=== PATIENT | female | born 1990 | race Caucasian/White ===

== ENCOUNTER → 2016-10-12 | Outpatient (CLI) | payer MEDICAID ==
[~2016-10-12] MED LIST: ADALAT CC30 MG PO; CETIRIZINE; FLOVENT 220MCG7.9 GM IH; LORTAB ELIX0.5 MG/ML PO; NAPROSYN 2250 MG/TAB PO; NEXPLANON68 MG ID; NO HOME MEDICATIONS; NORCO 325 MG-51 TAB PO; PERCOCET 325 MG1 TA2 PO; PHENTERMINE15 MG PO; PRENATAL1 TA1 PO; PRIL40 PO; PRILOSEC 20MG20 MG PO; PRILOTC PO; PROAIR HFA0.09 MG/AC IH; PROCARDIA XL 3030 MG PO; PROVENTIL0.09 MG/A1 IH; SENOKOT S 50 MG1 TAB PO; SINGULAIR 110 MG/TAB PO; STEROID INHALER IH; VITAMIN D1000 IU PO; VITAMIN E 400 U4001 PO; ZYRTEC 10MG10 MG PO
== END ==
LOC: COL.RAD 11:59
DX: M25.561 Pain in right knee (principal)

== ENCOUNTER 2017-01-25 09:55 | Day surgery (SDC) | payer MEDICAID ==
[~2017-01-25] VITALS: Ht 167.6 cm; Wt 110.7 kg
[2017-01-25 10:43] VITALS: BP 137/87; PULSE 69; TEMP 98.3
[2017-01-25 11:54] VITALS: BP 140/70; PULSE 75
[2017-01-25 12:10] VITALS: BP 135/67; PULSE 70
[2017-01-25 12:25] VITALS: BP 124/81; PULSE 64
== END 2017-01-25 12:40 | disposition home or self-care (01) ==
LOC: SDCO 09:55
DX: R13.12 Dysphagia, oropharyngeal phase (principal); K22.2 Esophageal obstruction; K21.0 Gastro-esophageal reflux disease with esophagitis; J45.909 Unspecified asthma, uncomplicated; F17.200 Nicotine dependence, unspecified, uncomplicated; Z79.899 Other long term (current) drug therapy
CPT/HCPCS: C1726; J2250; J3010; J7030

== ENCOUNTER 2017-07-15 18:41 | Emergency (ER) | payer MEDICAID ==
[~2017-07-15] VITALS: Ht 167.6 cm; Wt 113.6 kg
[2017-07-15 18:41] VITALS: BP 142/68; TEMP 98.4
[2017-07-15 19:19] LABS: COLLECTION METHOD CLEAN CATCH
[2017-07-15 19:25] LABS: MUCOUS Present /lpf; PH 5 (5-8); URINE APPEARANCE Hazy; URINE BACTERIA Rare /hpf; URINE BILIRUBIN Negative (NEGATIVE); URINE BLOOD Negative (NEGATIVE); URINE COLOR Yellow; URINE GLUCOSE Negative (NEGATIVE); URINE KETONE Negative (NEGATIVE); URINE LEUKOCYTE ESTERASE Negative (NEGATIVE); URINE PROTEIN(semi-quant) Negative (NEGATIVE); URINE UROBILINOGEN Negative (NEGATIVE)
[2017-07-15] MEDS ORDERED: PRENATABS FA1 TAB PO (19:34)
[2017-07-15] MEDS ORDERED: ALDOMET500 MG PO (19:34)
[2017-07-15] MEDS ORDERED: FOLIC ACID 11 MG/TA1 PO (19:34)
[2017-07-15] MEDS ORDERED: MACROBID 1100 MG/CAP PO (20:10)
[2017-07-15 20:16] VITALS: PULSE 79
== END 2017-07-15 20:17 | disposition home or self-care (01) ==
LOC: COL.ER 18:41
PROVIDERS: Emergency Medicine
DX: S30.811A Abrasion of abdominal wall, initial encounter (principal); S80.212A Abrasion, left knee, initial encounter; S50.311A Abrasion of right elbow, initial encounter; E66.9 Obesity, unspecified; I10 Essential (primary) hypertension; W10.9XXA Fall (on) (from) unspecified stairs and steps, initial encounter

== ENCOUNTER 2018-03-04 05:23 | Inpatient (IN) | payer MEDICAID ==
[2018-03-04] VITALS (20 sets, daily range): BP systolic 82–129; BP diastolic 48–91; PULSE 45–76; TEMP 97.8
[~2018-03-04] VITALS: Ht 165.2 cm; Wt 122.7 kg
[~2018-03-04 05:23] MED LIST changes: +ALDOMET500 MG PO; +FOLIC ACID 11 MG/TA1 PO; +MACROBID 1100 MG/CAP PO; +PRENATABS FA1 TAB PO
[2018-03-04 06:49] LABS: BASO % 0.4 % (0.0-2.0); EOS # 0.5 (0.0-0.7); EOS % 5.5 % (0-4.0); GRAN # 5.3 (1.4-6.5); HEMATOCRIT 37.4 % (37.0-47.0); HEMOGLOBIN 13.3 g/dl (12.5-16.0); LYMPH # 1.7 (1.2-3.4); MEAN CELL VOLUME 87 fl (80.0-100.0); MEAN CORPUSCULAR HEMOGLOBIN 31 pg (27.0-31.0); MEAN CORPUSCULAR HGB CONC 36 g/dl (33.0-37.0); MEAN PLATELET VOLUME 10.6 fl (7.4-10.4); MONO # 0.8 (0.1-0.6); MONO % 9.4 % (1.7-9.3); PLATELET COUNT 228 K/mm3 (130-400); RED BLOOD COUNT 4.28 M/mm3 (4.10-5.30); REDCELL DISTRIBUTION WIDTH-CV 13.3 % (11.5-14.5)
[2018-03-05 01:15] VITALS: BP 118/51; PULSE 66; TEMP 97.9
[2018-03-05 05:26] VITALS: BP 120/49; PULSE 63; TEMP 98.7
[2018-03-05 07:51] VITALS: BP 135/64; PULSE 66; TEMP 97.6
[2018-03-05] MEDS ORDERED: IBU600 MG PO (08:15)
[2018-03-05] MEDS ORDERED: PERCOCET 325 MG1 TA2 PO (08:15)
[2018-03-05 16:30] VITALS: BP 121/53; PULSE 68; TEMP 97.9
[2018-03-05 19:12] VITALS: BP 149/77; PULSE 61; TEMP 98.3
[2018-03-06 08:40] VITALS: BP 123/63; PULSE 62; TEMP 98.5
== END 2018-03-06 11:28 | disposition home or self-care (01) | DRG 766 ==
LOC: OB 05:23 → LDR 07:01 → OB 03-06 11:28
PROVIDERS: Obstetrics & Gynecology
PROC: 10D00Z1 Extraction of Products of Conception, Low, Open Approach (ICD-10-PCS; principal; 2018-03-04)
DX: O34.211 Maternal care for low transverse scar from previous cesarean delivery (principal); O13.4 Gestational [pregnancy-induced] hypertension without significant proteinuria, complicating childbirth; O99.214 Obesity complicating childbirth; O99.02 Anemia complicating childbirth; Z3A.39 39 weeks gestation of pregnancy; Z37.0 Single live birth
CPT/HCPCS: J0690; J1885; J2250; J2270; J2370; J2405; J2590; J7120

== ENCOUNTER 2018-06-09 19:42 | Emergency (ER) | payer MEDICAID ==
[~2018-06-09] VITALS: Ht 167.6 cm; Wt 118.2 kg
[~2018-06-09 19:42] MED LIST changes: +IBU600 MG PO
[2018-06-09 19:47] VITALS: TEMP 99.1
[2018-06-09 20:31] LABS: BASO # 0.1 (0.0-0.2); BASO % 0.7 % (0.0-2.0); EOS # 0.6 (0.0-0.7); EOS % 6.6 % (0-4.0); GRAN # 5.5 (1.4-6.5); GRAN % 57.2 % (42.2-75.2); HEMATOCRIT 42.6 % (37.0-47.0); HEMOGLOBIN 14.9 g/dl (12.5-16.0); LYMPH # 2.6 (1.2-3.4); MEAN CELL VOLUME 86 fl (80.0-100.0); MEAN CORPUSCULAR HEMOGLOBIN 30 pg (27.0-31.0); MEAN CORPUSCULAR HGB CONC 35 g/dl (33.0-37.0); MEAN PLATELET VOLUME 9.5 fl (7.4-10.4); MONO # 0.8 (0.1-0.6); MONO % 8.1 % (1.7-9.3); PLATELET COUNT 277 K/mm3 (130-400); RED BLOOD COUNT 4.96 M/mm3 (4.10-5.30); REDCELL DISTRIBUTION WIDTH-CV 13.1 % (11.5-14.5)
[2018-06-09 20:46] LABS: COLLECTION METHOD CLEAN CATCH
[2018-06-09 20:47] LABS: ALBUMIN 4.2 gm/dL (3.5-5.0); CALCIUM 9.2 mg/dL (8.4-10.2); CREATININE, serum 0.7 mg/dL (0.52-1.25); POTASSIUM 3.6 mmol/L (3.4-5.0); TOTAL PROTEIN 7.4 gm/dL (6.4-8.2)
[2018-06-09 20:51] LABS: MUCOUS Present /lpf; PH 6 (5-8); URINE APPEARANCE Clear; URINE BACTERIA None Seen /hpf; URINE BILIRUBIN Negative (NEGATIVE); URINE BLOOD Negative (NEGATIVE); URINE COLOR Yellow; URINE GLUCOSE Negative (NEGATIVE); URINE KETONE Negative (NEGATIVE); URINE LEUKOCYTE ESTERASE Negative (NEGATIVE); URINE NITRATE Negative (NEGATIVE); URINE PROTEIN(semi-quant) Negative (NEGATIVE); URINE RBC 0-2 /hpf; URINE UROBILINOGEN Negative (NEGATIVE)
[2018-06-09] MEDS ORDERED: FLEXERIL 1010 MG/TAB PO (21:36)
[2018-06-09 21:49] VITALS: BP 138/66; PULSE 71
[2018-06-09] MEDS ORDERED: PROCARDIA XL 3030 MG PO (21:53)
== END 2018-06-09 21:55 | disposition home or self-care (01) ==
LOC: COL.ER 19:42
PROVIDERS: Emergency Medicine
DX: R10.30 Lower abdominal pain, unspecified (principal); I10 Essential (primary) hypertension; F17.210 Nicotine dependence, cigarettes, uncomplicated; E66.9 Obesity, unspecified; Z90.49 Acquired absence of other specified parts of digestive tract; Z98.890 Other specified postprocedural states
CPT/HCPCS: J1885

== ENCOUNTER → 2018-06-12 | Outpatient (CLI) | payer MEDICAID ==
[~2018-06-12] MED LIST changes: +FLEXERIL 1010 MG/TAB PO
== END ==
LOC: COL.RAD 09:11
DX: R10.32 Left lower quadrant pain (principal); Z90.49 Acquired absence of other specified parts of digestive tract

== ENCOUNTER → 2018-08-05 | Outpatient (CLI) | payer MEDICAID | LOC: COL.CARD 09:21 | DX: R03.0 Elevated blood-pressure reading, without diagnosis of hypertension (principal) ==

== ENCOUNTER 2019-01-13 19:40 | Emergency (ER) | payer MEDICAID ==
[~2019-01-13] VITALS: Ht 167.6 cm; Wt 122.7 kg
[2019-01-13 19:52] VITALS: TEMP 98.2
[2019-01-13 23:59] LABS: COLLECTION METHOD CLEAN CATCH
[2019-01-14 00:12] LABS: MUCOUS Present /lpf; PH 5 (5-8); URINE APPEARANCE Cloudy; URINE BACTERIA None Seen /hpf; URINE BILIRUBIN Negative (NEGATIVE); URINE BLOOD 3+ (NEGATIVE); URINE CALCIUM OXALATE CRYSTAL Present /hpf; URINE COLOR Yellow; URINE GLUCOSE Negative (NEGATIVE); URINE KETONE Negative (NEGATIVE); URINE LEUKOCYTE ESTERASE Negative (NEGATIVE); URINE NITRATE Negative (NEGATIVE); URINE PROTEIN(semi-quant) 2+ (NEGATIVE); URINE RBC >50 /hpf; URINE UROBILINOGEN Negative (NEGATIVE)
[2019-01-14 01:50] VITALS: BP 161/73; PULSE 58
== END 2019-01-14 01:50 | disposition home or self-care (01) ==
LOC: COL.ER 19:40
PROVIDERS: Physician Assistant
DX: R10.84 Generalized abdominal pain (principal); I10 Essential (primary) hypertension; J45.909 Unspecified asthma, uncomplicated; K21.9 Gastro-esophageal reflux disease without esophagitis; F17.210 Nicotine dependence, cigarettes, uncomplicated; Z90.49 Acquired absence of other specified parts of digestive tract; Z88.6 Allergy status to analgesic agent; Z98.890 Other specified postprocedural states

== ENCOUNTER → 2021-01-11 | Outpatient (CLI) | payer MEDICAID | LOC: COL.RAD 14:00 | DX: Z09 Encounter for follow-up examination after completed treatment for conditions other than malignant neoplasm (principal); Z90.710 Acquired absence of both cervix and uterus | CPT/HCPCS: Q9967 ==

== ENCOUNTER 2021-10-28 07:52 | Emergency (ER) | payer MEDICAID ==
[~2021-10-28] VITALS: Ht 167.6 cm; Wt 120.9 kg
[2021-10-28 08:01] VITALS: TEMP 98.6
[2021-10-28] MEDS ORDERED: BACTRIM DS 8001 TAB PO (09:23)
[2021-10-28] MEDS ORDERED: NORCO 325 MG-51 TAB PO (09:23)
[2021-10-28 09:42] VITALS: BP 162/95; PULSE 100
== END 2021-10-28 09:33 | disposition home or self-care (01) ==
LOC: COL.ER 07:52
DX: L03.314 Cellulitis of groin (principal); I10 Essential (primary) hypertension; J45.909 Unspecified asthma, uncomplicated; F17.210 Nicotine dependence, cigarettes, uncomplicated; Z91.040 Latex allergy status; Z79.899 Other long term (current) drug therapy
CPT/HCPCS: J2270; J2550

== ENCOUNTER 2021-10-29 15:59 | Inpatient (IN) | payer MEDICAID ==
[~2021-10-29] VITALS: Ht 167.6 cm; Wt 120.5 kg
[~2021-10-29 15:59] MED LIST changes: +BACTRIM DS 8001 TAB PO
[2021-10-29 16:56] LABS: BASO # 0.1 K/mm3 (0.0-0.2); BASO % 0.5 % (0.0-2.0); EOS # 0.6 K/mm3 (0.0-0.7); EOS % 3.6 % (0.0-4.0); GRAN # 11.9 K/mm3 (1.4-6.5); GRAN % 76.7 % (42.2-75.2); HEMATOCRIT 42.6 % (37.0-47.0); HEMOGLOBIN 14.7 g/dl (12.5-16.0); LYMPH # 1.9 K/mm3 (1.2-3.4); LYMPH % 12.2 % (20.0-51.0); MEAN CELL VOLUME 88 fl (80.0-100.0); MEAN CORPUSCULAR HEMOGLOBIN 30 pg (27-31); MEAN CORPUSCULAR HGB CONC 35 g/dl (33.0-37.0); MEAN PLATELET VOLUME 9.8 fl (7.4-10.4); MONO % 6.5 % (1.7-9.3); PLATELET COUNT 273 K/mm3 (130-400); RED BLOOD COUNT 4.86 M/mm3 (4.10-5.30); REDCELL DISTRIBUTION WIDTH-CV 12.7 % (11.5-14.5)
[2021-10-29 17:06] LABS: ALBUMIN 3.8 gm/dL (3.5-5.0); BILIRUBIN,TOTAL 1.4 mg/dL (0.2-1.2); CALCIUM 8.9 mg/dL (8.4-10.2); CREATININE, serum 0.96 mg/dL (0.57-1.11); POTASSIUM 3.4 mmol/L (3.5-4.5); TOTAL PROTEIN 7.1 gm/dL (6.2-8.1)
[2021-10-29 17:15] LABS: C-REACTIVE PROTEIN 11.12 mg/dL (0.00-0.50)
--- NOTE | 2021-10-29 20:00 | NUR ---
Patient is resting in bed, alert and oriented x 4 VSS, Continues with pain in the left lower abd. Specially with movement. Antibiotics and NS running. Assessment completed, no other needs at this time. Call light within reach.
[2021-10-29 20:01] VITALS: BP 140/68; PULSE 98; TEMP 98.5
--- NOTE | 2021-10-29 23:47 | NUR ---
Vancomycin Initial Dosing Pharmacy Note Ordering provider: Jose Francisco Mckeon MD Indication/duration: Cellulitis x 5 days Relevant comorbidities: HTN LABS: WBC = 15.5, SCr = 0.96 Recommendation: Will draw troughs and follow levels. Loading dose: 1.5 grams Maintenance dose: 750 mg every 8 hours Trough goal: 10-15 ug/mL
[2021-10-29 23:54] LABS: COLLECTION METHOD CLEAN CATCH
[2021-10-29 23:59] LABS: PH 5 (5-8); URINE APPEARANCE Clear (CLEAR/HAZY); URINE BACTERIA None Seen /hpf (NONE SEEN); URINE BILIRUBIN Negative (NEGATIVE); URINE BLOOD Negative (NEGATIVE); URINE COLOR Yellow (YELLOW); URINE GLUCOSE Negative (NEGATIVE); URINE KETONE Negative (NEGATIVE); URINE LEUKOCYTE ESTERASE Negative (NEGATIVE); URINE NITRATE Negative (NEGATIVE); URINE PROTEIN(semi-quant) Negative (NEGATIVE); URINE RBC 0-2 /hpf (0-2); URINE UROBILINOGEN Negative (NEGATIVE); URINE WBC 0-2 /hpf (0-2)
[2021-10-30] VITALS (16 sets, daily range): BP systolic 123–153; BP diastolic 50–86; PULSE 65–92; TEMP 98–101.1
--- NOTE | 2021-10-30 06:24 | NUR ---
Patient was not able to sleep along the night. Had some fever and headache. Receiving antibiotics. Report will be given to day RN.
[2021-10-30 06:56] LABS: BASO # 0.1 K/mm3 (0.0-0.2); BASO % 0.5 % (0.0-2.0); EOS # 0.6 K/mm3 (0.0-0.7); EOS % 5.4 % (0.0-4.0); GRAN # 7.2 K/mm3 (1.4-6.5); GRAN % 65.4 % (42.2-75.2); HEMATOCRIT 37.7 % (37.0-47.0); HEMOGLOBIN 12.9 g/dl (12.5-16.0); LYMPH # 2.2 K/mm3 (1.2-3.4); LYMPH % 19.9 % (20.0-51.0); MEAN CELL VOLUME 91 fl (80.0-100.0); MEAN CORPUSCULAR HEMOGLOBIN 31 pg (27-31); MEAN CORPUSCULAR HGB CONC 34 g/dl (33.0-37.0); MEAN PLATELET VOLUME 10.3 fl (7.4-10.4); MONO # 0.9 K/mm3 (0.1-0.6); MONO % 8.4 % (1.7-9.3); PLATELET COUNT 235 K/mm3 (130-400); RED BLOOD COUNT 4.16 M/mm3 (4.10-5.30); REDCELL DISTRIBUTION WIDTH-CV 12.8 % (11.5-14.5)
[2021-10-30 07:26] LABS: CALCIUM 8.4 mg/dL (8.4-10.2); CREATININE, serum 0.74 mg/dL (0.57-1.11); MAGNESIUM 1.9 mg/dL (1.6-2.6); PHOSPHOROUS 2.7 mg/dL (2.3-4.7); POTASSIUM 4.1 mmol/L (3.5-4.5)
--- NOTE | 2021-10-30 10:04 | NUR ---
PT LAYING IN BED. STATES THAT SHE JUST GOT UP TO THE BATHROOM AND IS NOW HAVING A LOT OF PAIN IN LOWER ABD AREA. AREA IS RED AND WARM. NO DRAINAGE NOTED. PT IS IN OWN CLOTHES AND WOULD LIKE TO CHANGE INTO A GOWN FOR MORE COMFORT. ASSISTED PAIN INTO GOWN. PT RATES PAIN A 7 OUR OF 10 AT THIS TIME. NO OTHER NEEDS ARE VOICED AT THIS TIME. CALL LIGHT IS WITHIN REACH.
--- NOTE | 2021-10-30 12:18 | NUR ---
AT BEDSIDE. STATES THAT HE WOULD LIKE TO TAKE PT TO OR TO OPEN UP WOUND AND CLEAN IT OUT. PT VERBALIZES UNDERSTANDING. PT DID HAVE BREAKFAST TO EAT. STATES THAT PT NEEDS TO HOLD LUNCH AND FOODS BUT CAN HAVE CLEAR LIQUIDS. PT STATES NO OTHER NEEDS AT THIS TIME. CALL LIGHT IS WITHIN REACH.
--- NOTE | 2021-10-30 15:10 | NUR ---
social worker masters met with patient to discuss discharge plan. Patient reports that she lives at home with her two children in [place]. Her mother Martha ([phone]) is caring for the two children while the patient is in the hospital. Patient is independent with her activities of daily living and does not utilize any DME to assist with mobility. Patient has no oxygen needs at home. PCP is Dr. Dewitt and she utilizes [facility] for medications with no cost difficulty. Patient reports that she does not have a DPOA-HC established and is not interested in creating one at this time. Educations provided to the patient. She is not and both of her children are minors. Patient's established NOK is her mother Martha. Patient is planning on returning home with no concerns. Discharge plan: Home
--- NOTE | 2021-10-30 17:04 | NUR ---
PT OFF FLOOR TO OR
--- NOTE | 2021-10-30 18:04 | NUR ---
PT RETURNED TO ROOM FROM OR. 4X4, ABD, TAPE ON INCISION SITE. PT STATES THAT SHE WOULD LIKE TO HAVE SOME FOOD. ASSISTED TO ORER DINNER. PT STATES THAT SHE CAN "FEEL IT BURNING." PT ALSO COMPLAINS OF HEADACHE. NO OTHER NEEDS AT THIS TIME ARE EXPRESSED. PT IS HOOKED TO VITAL MACHINE WITH FAMILY AT BEDSIDE. CALL LIGHT IS WITHIN REACH.
--- NOTE | 2021-10-30 18:15 | NUR ---
SCDS APPLIED TO BLE
--- NOTE | 2021-10-30 20:00 | NUR ---
Patient is resting in bed eating her dinner. Alert and oriented x 4, VSS. States she continue having pain. PRN provided. Incition site covered with gauze, clean, dry, intact. Continue monitoring post op VS. SCDs in place. Antibiotics running. Assessment completed, medications provided. No further needs at this time. Call light within reach.
[2021-10-31 04:32] VITALS: BP 143/60; PULSE 87; TEMP 99.5
[2021-10-31 06:50] LABS: BASO % 0.4 % (0.0-2.0); EOS # 0.5 K/mm3 (0.0-0.7); EOS % 5.8 % (0.0-4.0); GRAN # 5.8 K/mm3 (1.4-6.5); HEMATOCRIT 40.2 % (37.0-47.0); HEMOGLOBIN 13.7 g/dl (12.5-16.0); LYMPH # 1.8 K/mm3 (1.2-3.4); LYMPH % 20.3 % (20.0-51.0); MEAN CELL VOLUME 89 fl (80.0-100.0); MEAN CORPUSCULAR HEMOGLOBIN 30 pg (27-31); MEAN CORPUSCULAR HGB CONC 34 g/dl (33.0-37.0); MEAN PLATELET VOLUME 10.2 fl (7.4-10.4); MONO # 0.7 K/mm3 (0.1-0.6); MONO % 8.1 % (1.7-9.3); PLATELET COUNT 251 K/mm3 (130-400); REDCELL DISTRIBUTION WIDTH-CV 12.5 % (11.5-14.5)
[2021-10-31 07:01] LABS: ALBUMIN 3.1 gm/dL (3.5-5.0); CALCIUM 8.6 mg/dL (8.4-10.2); CREATININE, serum 0.68 mg/dL (0.57-1.11); MAGNESIUM 1.9 mg/dL (1.6-2.6); POTASSIUM 4.1 mmol/L (3.5-4.5)
--- NOTE | 2021-10-31 07:06 | NUR ---
Patient had an uneventful night. She had some discomfort in the surgical area but did not asked for pain medication. Continue receiving Vanco. Shift report given to day RN.
--- NOTE | 2021-10-31 07:11 | NUR ---
PT LAYING BED ASLEEP. CALL LIGHT IS WITHIN REACH.
--- NOTE | 2021-10-31 07:50 | NUR ---
PT STATES THAT SHE WOULD LIKE TO HAVE SOME TYLENOL FOR HEADACHE. TYLENOL WAS GIVEN. PT UP TO BATHROOM TO VOID. PT STATES NO OTHER NEEDS AT THIS TIME. CALL LIGHT IS PLACED WITHIN REACH.
[2021-10-31 08:22] VITALS: BP 153/72; PULSE 84; TEMP 100.4
[2021-10-31 12:32] VITALS: BP 163/82; PULSE 80; TEMP 98.2
--- NOTE | 2021-10-31 14:27 | NUR ---
Vancomycin Follow-up Pharmacy Note Current regimen: Vancomycin 750 mg IV q8h Vancomycin trough: 9.27 Adjustments: Increase Vancomycin to 1 gm IV q8h. Pharmacy will continue to closely monitor and check a trough on 11/01/21.
[2021-10-31 16:38] VITALS: BP 157/80; PULSE 72; TEMP 99.6
--- NOTE | 2021-10-31 18:58 | NUR ---
PT STATES THAT SHE IS HAVING SOME PAIN AND WOULD LIKE HER PAIN PILL. MEDICATION WAS GIVEN TO PT PER MAR. PT STATES NO OTHER NEEDS AT THIS TIME. CALL LIGHT IS WITHIN REACH.
[2021-10-31 21:03] VITALS: BP 153/66; PULSE 69; TEMP 98.4
[2021-11-01 00:15] VITALS: BP 158/62; PULSE 69; TEMP 97.8
[2021-11-01 04:05] VITALS: BP 153/76; PULSE 70; TEMP 98
--- NOTE | 2021-11-01 05:27 | NUR ---
PT has had intermitent rest. She continue receiving antibiotics. Ice on incision. Dressing changed after request. No more drainage present. Dry, clean, edges well approximated. Continues with pain and requested norco, provided. Report will be given to day RN.
[2021-11-01 06:48] LABS: BASO # 0.1 K/mm3 (0.0-0.2); EOS # 0.7 K/mm3 (0.0-0.7); EOS % 10.9 % (0.0-4.0); GRAN # 2.9 K/mm3 (1.4-6.5); GRAN % 48.1 % (42.2-75.2); HEMATOCRIT 38.8 % (37.0-47.0); HEMOGLOBIN 13.5 g/dl (12.5-16.0); LYMPH # 1.9 K/mm3 (1.2-3.4); LYMPH % 30.6 % (20.0-51.0); MEAN CELL VOLUME 88 fl (80.0-100.0); MEAN CORPUSCULAR HEMOGLOBIN 31 pg (27-31); MEAN CORPUSCULAR HGB CONC 35 g/dl (33.0-37.0); MEAN PLATELET VOLUME 10.2 fl (7.4-10.4); MONO # 0.5 K/mm3 (0.1-0.6); MONO % 8.7 % (1.7-9.3); PLATELET COUNT 262 K/mm3 (130-400); RED BLOOD COUNT 4.41 M/mm3 (4.10-5.30); REDCELL DISTRIBUTION WIDTH-CV 12.1 % (11.5-14.5)
[2021-11-01 07:05] LABS: ALBUMIN 3.1 gm/dL (3.5-5.0); CALCIUM 8.8 mg/dL (8.4-10.2); CREATININE, serum 0.72 mg/dL (0.57-1.11); MAGNESIUM 1.9 mg/dL (1.6-2.6); PHOSPHOROUS 3.8 mg/dL (2.3-4.7); POTASSIUM 3.9 mmol/L (3.5-4.5)
[2021-11-01 08:24] VITALS: BP 167/80; PULSE 71; TEMP 98.2
[2021-11-01] MEDS ORDERED: DOXYCYCLINE 10100 MG PO (09:52)
[2021-11-01] MEDS ORDERED: TYLENOL 500MG500 MG PO (09:53)
[2021-11-01] MEDS ORDERED: ZESTRIL 10MG10 MG PO (09:53)
[2021-11-01] MEDS ORDERED: NORCO 325 MG-51 TAB PO (09:54)
--- NOTE | 2021-11-01 13:20 | NUR ---
Scheduled medications given. Shift assesment performed. PRN pain medication given for headache. BP elevated, BP medication given. All other VSS. Patient A&O. Patient deemed fit for discharge. IV DC'd, catheter intact, no signs of phlebitis. Discharge education/instructions given. All questions answered. Patient abcess site redressed with abd and tegaderm. Patient escorted from wheelchair via wheelchair by [facility] staff. Family transporting home.
== END 2021-11-01 13:10 | disposition home or self-care (01) | DRG 872 ==
LOC: COL.ER 15:59 → MEDICAL 16:37
PROVIDERS: Emergency Medicine; Surgery; ADMIT Internal Medicine
PROC: 0J9C0ZZ Drainage of Pelvic Region Subcutaneous Tissue and Fascia, Open Approach (ICD-10-PCS; principal; 2021-10-30 17:00)
DX: A41.9 Sepsis, unspecified organism (principal); K92.1 Melena; N73.2 Unspecified parametritis and pelvic cellulitis; I10 Essential (primary) hypertension; J45.909 Unspecified asthma, uncomplicated; F17.210 Nicotine dependence, cigarettes, uncomplicated; B95.62 Methicillin resistant Staphylococcus aureus infection as the cause of diseases classified elsewhere; Z88.8 Allergy status to other drugs, medicaments and biological substances
CPT/HCPCS: 99223-AI; 99232-AI; 99233-AI; 99239; J0696; J2250; J2270; J2405; J2543; J2704; J3010; J3370; J7030; J7050; Q9967

== ENCOUNTER 2024-07-22 12:44 | Inpatient (IN) | payer BC ==
[~2024-07-22] VITALS: Ht 167.6 cm; Wt 115.5 kg
[~2024-07-22 12:44] MED LIST changes: +DOXYCYCLINE 10100 MG PO; +TYLENOL 500MG500 MG PO; +ZESTRIL 10MG10 MG PO
[2024-07-22] MEDS ORDERED: Acetaminophen 325 MG TAB PO ONE (14:30)
[2024-07-22] MEDS ORDERED: Albuterol/Ipratropium 3 MG-0.5 MG/3 ML Neb Soln IH ONE (14:30)
[2024-07-22] MEDS ORDERED: NS 1,000 ML IV ONE ×2 (14:30→16:30)
[2024-07-22 14:48] LABS: BASO # 0.1 K/mm3 (0.0-0.2); BASO % 0.5 % (0.0-2.0); EOS # 0.1 K/mm3 (0.0-0.7); EOS % 1.2 % (0.0-4.0); GRAN # 9.7 K/mm3 (1.4-6.5); GRAN % 85.8 % (42.2-75.2); HEMATOCRIT 41.2 % (37.0-47.0); HEMOGLOBIN 14.4 g/dl (12.5-16.0); LYMPH # 0.5 K/mm3 (1.2-3.4); LYMPH % 4.4 % (20.0-51.0); MEAN CELL VOLUME 90 fl (80.0-100.0); MEAN CORPUSCULAR HEMOGLOBIN 32 pg (27-31); MEAN CORPUSCULAR HGB CONC 35 g/dl (33.0-37.0); MEAN PLATELET VOLUME 10.7 fl (7.4-10.4); MONO # 0.9 K/mm3 (0.1-0.6); MONO % 7.7 % (1.7-9.3); PLATELET COUNT 267 K/mm3 (130-400); RED BLOOD COUNT 4.57 M/mm3 (4.10-5.30); REDCELL DISTRIBUTION WIDTH-CV 13.2 % (11.5-14.5)
[2024-07-22 15:02] LABS: ALBUMIN 3.7 g/dL (3.5-5.0); BILIRUBIN,TOTAL 1.3 mg/dL (0.2-1.2); C-REACTIVE PROTEIN 6.18 mg/dL (0.00-0.50); CALCIUM 9.2 mg/dL (8.4-10.2); CREATININE, serum 0.77 mg/dL (0.57-1.11); POTASSIUM 3.9 mEq/L (3.5-4.5); TOTAL PROTEIN 7.4 g/dl (6.2-8.1)
[2024-07-22 15:09] LABS: TROPONIN-I 0.118 ng/mL (0.00-0.033)
[2024-07-22] MEDS ORDERED: LR 1,000 ML IV ONE (15:30)
[2024-07-22] MEDS ORDERED: cefTRIAXone 1 G in Water For Injection,Sterile 10 ML IV ONE (15:45)
[2024-07-22 16:04] LABS: COLLECTION METHOD CLEAN CATCH
[2024-07-22 16:12] LABS: PH 7.5 (5.0-8.5); URINE APPEARANCE CLEAR (CLEAR/HAZY); URINE BLOOD NEGATIVE (NEGATIVE); URINE COLOR YELLOW (YELLOW); URINE GLUCOSE NEGATIVE (NEGATIVE); URINE KETONE NEGATIVE (NEGATIVE); URINE NITRATE NEGATIVE (NEGATIVE); URINE PROTEIN(semi-quant) NEGATIVE (NEGATIVE); URINE UROBILINOGEN 0.2 E.U/dL (0.2-1.0)
[2024-07-22] MEDS ORDERED: Polyethylene Glycol 3350 17 GM PDS PO PRN (16:30)
[2024-07-22] MEDS ORDERED: LR 1,000 ML IV SCH (16:30)
[2024-07-22] MEDS ORDERED: Ondansetron 4 MG/2 ML VIAL IV PRN (16:30)
[2024-07-22] MEDS ORDERED: Docusate Sodium 100 MG CAP PO PRN (16:30)
[2024-07-22] MEDS ORDERED: Acetaminophen 325 MG TAB PO PRN (16:30)
[2024-07-22] MEDS ORDERED: Doxycycline Monohydrate 100 MG CAP PO ONE (16:30)
[2024-07-22] MEDS ORDERED: amLODIPine 5 MG TAB PO SCH (16:39)
[2024-07-22] MEDS ORDERED: dexAMETHasone 10 MG/ML VIAL IV SCH (16:45)
[2024-07-22] MEDS ORDERED: hydrALAZINE 20 MG/ML 1 ML VIAL IV PRN (16:45)
[2024-07-22 18:07] VITALS: BP 151/83; PULSE 115; TEMP 98.2
[2024-07-22 18:22] VITALS: BP_SYST 151
[2024-07-22] MEDS ORDERED: Budesonide Neb Susp 0.5 MG/2 ML AMP IH SCH (19:00)
--- NOTE | 2024-07-22 19:13 | NUR ---
Patient admitted to room 315 at approximately 1800 from the ED. O2 2L/NC. See flowsheet for VS. Dyspnea noted at rest. Respiratory at bedside administering treatment at this time. LR started to LAC as ordered. Rates right knee pain 8/10 but declines offer for Maud. Fall precautions in place. Intake and Med Rec completed. Bedside report given to KEVIN Clark.
[2024-07-22 19:29] VITALS: BP 160/81; PULSE 117; TEMP 98.2
[2024-07-22 19:34] VITALS: BP 16/81
[2024-07-22] MEDS ORDERED: Albuterol/Ipratropium 3 MG-0.5 MG/3 ML Neb Soln IH SCH (20:00)
--- NOTE | 2024-07-22 20:37 | NUR ---
HOSPITALIST TIFFANY BENDER CALLED FOR HIGH CRITICAL TROPONION OF 0.092. NO NEW ORDERS RECIEVED.
[2024-07-22 20:46] VITALS: BP_SYST 160
[2024-07-22] MEDS ORDERED: Cetirizine 10 MG TAB PO SCH (21:00)
[2024-07-22] MEDS ORDERED: Benzonatate 100 MG CAP PO SCH (21:00)
[2024-07-22] MEDS ORDERED: Montelukast 10 MG TAB PO SCH (21:00)
[2024-07-22 23:59] VITALS: BP 146/75; PULSE 90; TEMP 98
[2024-07-23] VITALS (12 sets, daily range): BP systolic 112–153; BP diastolic 46–93; PULSE 86–105; TEMP 98.6–98.9
--- NOTE | 2024-07-23 00:09 | NUR ---
patient lying in bed, alert and oriented x4. denies chest pain/discomfort. reports shortness of breath with exertion. education provided on deep and pursed lip breathing, pt verablly understood. reports pain rated 8/10 in right hip and knee, per request norco given. upon reassessment pt in room resting with eyes closed and snoring. right knee brace in room, pt ambulating x1 assist and crutches with steady gait. fall precautions in place, call light within reach. pt diaphoretic with no elevated temperatur, room thermostat adjusted and cool rags placed on back of neck and forehead. pt has no further needs, questions or concerns at this time
[2024-07-23 06:40] LABS: HEMATOCRIT 39.3 % (37.0-47.0); HEMOGLOBIN 13.9 g/dl (12.5-16.0); MEAN CELL VOLUME 89 fl (80.0-100.0); MEAN CORPUSCULAR HEMOGLOBIN 31 pg (27-31); MEAN CORPUSCULAR HGB CONC 35 g/dl (33.0-37.0); MEAN PLATELET VOLUME 10.8 fl (7.4-10.4); PLATELET COUNT 236 K/mm3 (130-400); RED BLOOD COUNT 4.44 M/mm3 (4.10-5.30); REDCELL DISTRIBUTION WIDTH-CV 12.9 % (11.5-14.5)
[2024-07-23 06:52] LABS: CALCIUM 8.7 mg/dL (8.4-10.2); CREATININE, serum 0.64 mg/dL (0.57-1.11); POTASSIUM 4.2 mEq/L (3.5-4.5)
[2024-07-23 07:31] LABS: BAND 2 % (0-10); LYMPHOCYTE 4 % (20.0-51.0); NEUTROPHILS 90 % (42.0-75.2); PLATELET ESTIMATE NORMAL (NORMAL)
--- NOTE | 2024-07-23 08:05 | NUR ---
Assessment completed. Pt c/o cough- unsure what color of sputum she's coughing up. Scheduled Tessalon Priscilla administered. Fall precautions in place.
[2024-07-23] MEDS ORDERED: Doxycycline Monohydrate 100 MG CAP PO SCH (09:00)
--- NOTE | 2024-07-23 12:18 | NUR ---
[facility] Closer Helper met with patient and her mother, Martha (ph#[phone]) to discuss discharge planning. Patient lives in [place] with her boyfriend, Bob Castillo and their daughter, Cyndie. Patient's son, Mateo has autism and lives with his grandparents. Patient sees Dr. Villela for primary care and gets her medications from [facility]. Patient does report difficulties affording medications and other bills. 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 Patient has utilized [employer] out of [place] to assist with bills in the past. Patient reported she was kicked off of [employer] due to having money saved in [facility] [employer]. Patient uses a home CPAP but needs a new mask. Patient stated she knows how to contact [facility] for one, but has not followed through on that yet. Patient does not have DPOA-HC and was not interested in completing one at this time. Patient is not to Bob and has no adult children. Patient's next of kin is her mother, Martha. Patient's father is . Discharge Plan; Home, may need assistance with medications
--- NOTE | 2024-07-23 14:53 | NUR ---
Madison administered for c/o right knee pain. Scheduled Tessalon Priscilla administered po. Pt reports she is now coughing up thick yellow sputum. IVF d/c'd per MD order.
--- NOTE | 2024-07-23 18:50 | NUR ---
Unable to find appropriate knee brace from [employer]. Dr. Lang made aware. On RA. SOA with exertion. Bedside report given to KEVIN Contreras.
[2024-07-24] VITALS (10 sets, daily range): BP systolic 118–139; BP diastolic 61–92; PULSE 75–97; TEMP 97.7–98.8
[2024-07-24] MEDS ORDERED: guaiFENesin Oral Soln 200 MG/10 ML UD PO ONE ×2 (00:30→01:45)
[2024-07-24 06:57] LABS: BASO % 0.1 % (0.0-2.0); GRAN # 5.1 K/mm3 (1.4-6.5); GRAN % 72.7 % (42.2-75.2); HEMOGLOBIN 12.9 g/dl (12.5-16.0); LYMPH % 13.8 % (20.0-51.0); MEAN CELL VOLUME 91 fl (80.0-100.0); MEAN CORPUSCULAR HEMOGLOBIN 31 pg (27-31); MEAN CORPUSCULAR HGB CONC 34 g/dl (33.0-37.0); MEAN PLATELET VOLUME 10.7 fl (7.4-10.4); MONO # 0.9 K/mm3 (0.1-0.6); MONO % 12.7 % (1.7-9.3); PLATELET COUNT 259 K/mm3 (130-400); RED BLOOD COUNT 4.17 M/mm3 (4.10-5.30); REDCELL DISTRIBUTION WIDTH-CV 13.1 % (11.5-14.5)
[2024-07-24 07:09] LABS: C-REACTIVE PROTEIN 3.28 mg/dL (0.00-0.50); CREATININE, serum 0.77 mg/dL (0.57-1.11); POTASSIUM 4.1 mEq/L (3.5-4.5)
--- NOTE | 2024-07-24 07:28 | NUR ---
Bedside report received from KEVIN Contreras. Pt awake in bed with no complaints. Call light within reach and fall precautions in place.
--- NOTE | 2024-07-24 08:27 | NUR ---
Pt awake in bed with complaints of Rt knee pain following coughing episodes. PRN Catlin administered as ordered. Pt rates pain 8/10 in Rt knee. Shift assessment completed. VSS. Pt reports to this nurse that cough causes chest discomfort and mild AMIN. INT to Lt AC patent with no swelling, redness, or drainage. Pt has no further complaints at this time. Call light within reach and fall precautions in place.
--- NOTE | 2024-07-24 11:35 | NUR ---
NEREYDA sent request to Financial Counselor Ayden requesting an FAA for patient due to concerns about her BC insurance due to missed premium payments per patient report. Discharge plan: Home
[2024-07-24] MEDS ORDERED: guaiFENesin 200 MG TAB PO SCH (14:00)
--- NOTE | 2024-07-24 17:57 | NUR ---
Pt requesting medication for anxiety. Attempted to call NAPOLEON Bower. No answer at this time.
--- NOTE | 2024-07-24 18:18 | NUR ---
TORB 1mg IV Ativan x1 dose for anxiety by NAPOLEON Bower.
[2024-07-24] MEDS ORDERED: LORazepam 2 MG/ML 1 ML VIAL IV ONE (18:30)
--- NOTE | 2024-07-24 21:38 | NUR ---
PATIENT RESTING IN BED. NEW IV STARTED AT PATIENT'S REQUEST, 22G TO THE RIGHT HAND. DENIES PAIN. CONTINUES ON ROOM AIR. CALL LIGHT WITHIN REACH. BED LOCKED AND IN LOW POSITION. DENIES ANY OTHER NEEDS AT THIS TIME.
[2024-07-25 00:18] VITALS: BP_SYST 130
[2024-07-25] MEDS ORDERED: guaiFENesin/Dextromethorphan Oral Soln 200-20 MG/10 ML UD PO PRN (01:15)
--- NOTE | 2024-07-25 01:22 | NUR ---
PATIENT REQUESTING SOMETHING ELSE FOR HER COUGH STATING IT IS KEEPING HER UP. CALLED HOSPITALIST TIFFANY BENDER AND NEW ORDERS RECEIVED FOR ROBITUSSIN DM 5ML Q6HR PRN FOR COUGH.
[2024-07-25 03:58] VITALS: BP 140/81; PULSE 83; TEMP 98.4
[2024-07-25 04:00] VITALS: BP_SYST 140
--- NOTE | 2024-07-25 06:50 | NUR ---
Pt laying in bed. Pt calm in bed scrolling on phone. This RN introduced herself to Pt and Pt began coughing and asking for antianxiety medication and cough medicine. Pt coughed up small amount of sputum and stated it hurts to cough. RN offered Pt hot tea or water to soothe throat, Pt declined at the moment but stated maybe later. Made plan with Pt to bring cough medicine in with other morning meds. Call light in reach.
[2024-07-25 07:18] VITALS: BP 147/95; PULSE 105; TEMP 98.5
[2024-07-25 07:57] VITALS: BP_SYST 147
[2024-07-25] MEDS ORDERED: predniSONE 20 MG TAB PO SCH (08:00)
--- NOTE | 2024-07-25 08:03 | NUR ---
Pt sleeping in bed. No coughing, short, shallow breaths. Pt woke up. A&Ox4. VSS. Slightly tachycardic and tachypenic. S1S2. Clear upper lungs. Crackles in right lower lung with expiratory wheezing. left lower lung diminished. On RA. Pt refused oxygen at this time for comfort. ABD round, soft, non-tender with audible bowel sounds. Palpable pulses in all extremities with 5/5 strength. AM meds administered. INT in R hand patent, no issues. Pt ambulated to bathroom no problems. Call light in reach.
[2024-07-25] MEDS ORDERED: PREDNISONE20 MG PO (10:25)
[2024-07-25] MEDS ORDERED: SINGULAIR 110 MG/TAB PO (10:26)
[2024-07-25] MEDS ORDERED: VENTOLIN0.09 MG IH (10:26)
[2024-07-25] MEDS ORDERED: TESSALON PERLE200 MG PO (10:27)
[2024-07-25] MEDS ORDERED: MONODOX100 PO (10:30)
[2024-07-25] MEDS ORDERED: OMNICEF 300MG300 MG PO (10:31)
[2024-07-25] MEDS ORDERED: CHERATUSSIN AC120 ML PO (10:31)
--- NOTE | 2024-07-25 10:58 | NUR ---
D/C'ed Pt's INT from R hand. Pressure bandage applied. Pt getting dressed then will go over D/C instructions.
[2024-07-25] MEDS ORDERED: NORVASC 5MG5 MG/TAB PO (11:00)
--- NOTE | 2024-07-25 11:30 | NUR ---
Educated Pt and family on D/C instructions and information. Answered Pt questions. No further needs. Pt transported to vehicle via WC by APRYL Cash.
== END 2024-07-25 11:33 | disposition home or self-care (01) | DRG 871 ==
LOC: COL.ER 12:44 → MEDICAL 16:36
PROVIDERS: Nurse Practitioner; ADMIT Internal Medicine
DX: A41.9 Sepsis, unspecified organism (principal); J18.9 Pneumonia, unspecified organism; J96.01 Acute respiratory failure with hypoxia; Z68.41 Body mass index [BMI] 40.0-44.9, adult; J45.909 Unspecified asthma, uncomplicated; G47.33 Obstructive sleep apnea (adult) (pediatric); I16.0 Hypertensive urgency; R79.89 Other specified abnormal findings of blood chemistry; K20.0 Eosinophilic esophagitis; M25.561 Pain in right knee; E66.01 Morbid (severe) obesity due to excess calories; I10 Essential (primary) hypertension; Z87.891 Personal history of nicotine dependence
CPT/HCPCS: J0696; J1100; J1650; J2060; J2543; J7030; J7120; J7512